=== PATIENT | female | born 1980 | race American Indian/Alaskan Native ===

== ENCOUNTER 2021-01-30 05:50 | Day surgery (SDC) | payer OTHER ==
[~2021-01-30 05:50] MED LIST: FLONASE IH; TYLE PO; ZYRTEC10 M3 PO
[2021-01-30] MEDS ORDERED: CODE1TAB37 PO (09:38)
== END 2021-01-30 13:50 | disposition home or self-care (01) ==
LOC: CIR.AMB 05:50
PROVIDERS: ATTEND Obstetrics & Gynecology Maternal & Fetal Medicine
DX: N84.0 Polyp of corpus uteri (principal); N75.0 Cyst of Bartholin's gland; Z20.822 Contact with and (suspected) exposure to COVID-19